=== PATIENT | female | born 2000 | race Caucasian/White ===

== ENCOUNTER 2020-03-30 08:45 | Emergency (ER) | payer OTHER ==
[2020-03-30] MEDS ORDERED: FAMOTIDINE 20 MG TAB PO ONE (09:15)
[2020-03-30] MEDS ORDERED: predniSONE 20 MG TAB ONE (09:16)
--- NOTE | 2020-03-30 09:41 | RAD REPORT ---
EXAM DESCRIPTION: Rinku Single View03/30/2020 9:32 am CLINICAL HISTORY: sob COMPARISON: none FINDINGS: The lungs appear clear of acute infiltrate. The heart is normal size IMPRESSION: No acute abnormalities displayed
--- NOTE | 2020-03-30 09:47 | ER ---
Nurse's Notes [facility] Name: Stephanie Saldaña Age: 20 yrs Sex: Female : 2000 Arrival Date: 03/30/2020 Time: 08:51 Bed 19 Private MD: Diagnosis: Allergic contact dermatitis Presentation: 03/30 09:00 Chief complaint: Patient states: CIRCUM-ORAL RASH AND SOB SINCE LAST PM. Coronavirus bp screen: Prior COVID test DX POSITIVE 03/18. Ebola Screen: No symptoms or risks identified at this time. Initial Sepsis Screen: Does the patient meet any 2 criteria? No. Patient's initial sepsis screen is negative. Does the patient have a suspected source of infection? No. Patient's initial sepsis screen is negative. Risk Assessment: Do you want to hurt yourself or someone else? Patient reports no desire to harm self or others. Onset of symptoms was March 29, 2020 at 21:00. Care prior to arrival: BENADRYL 25MG PO \T\ 0800. 09:00 Method Of Arrival: Ambulatory bp 09:00 Acuity: LARISA 3 bp Triage Assessment: 09:03 General: Appears in no apparent distress. uncomfortable, slender, Behavior is bp cooperative, appropriate for age, anxious. Pain: Denies pain. EENT: CIRCUM-ORAL RASH. Neuro: No deficits noted. Cardiovascular: No deficits noted. Respiratory: Reports shortness of breath Airway is patent Respiratory effort is even, unlabored, Respiratory pattern is regular, symmetrical, Onset: The symptoms/episode began/occurred yesterday, the patient has mild shortness of breath. GI: No signs and/or symptoms were reported involving the gastrointestinal system. : No signs and/or symptoms were reported regarding the genitourinary system. Derm: No deficits noted. Musculoskeletal: No deficits noted. 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 - Social history:: Smoking status: Patient denies any tobacco usage or history of. Screenin:04 Abuse screen: Denies threats or abuse. Denies injuries from another. Nutritional bp screening: No deficits noted. Tuberculosis screening: No symptoms or risk factors identified. Fall Risk None identified. Assessment: 09:04 General: SEE TRIAGE NOTE. Cardiovascular: Rhythm is sinus rhythm. Respiratory: Airway bp is patent Breath sounds are clear bilaterally. 09:08 Reassessment: MED REQUESTED FROM PHARMACY, DELIVERY PENDING. bp 09:19 Reassessment: XRAY AT B/S. MEDS DELIVERED AND ADMINISTERED. bp 09:51 Reassessment: PT D/C HOME AMBULATORY, DX WITH CONTACT DERMATITIS. bp Vital Signs: 09:00 BP 117 / 80; Pulse 74; Resp 17; Temp 98.2; Pulse Ox 99% ; Weight 68.04 kg; Height 5 ft. bp 11 in. (180.34 cm); 09:18 BP 112 / 74; Pulse 67; Resp 16; Pulse Ox 99% ; bp 09:00 Body Mass Index 20.92 (68.04 kg, 180.34 cm) bp ED Course: 08:51 Patient arrived in ED. mr 08:51 Carmen Zuluaga FNP-C is [facility]. kb 08:51 Cipriano Up MD is Attending Physician. kb 08:52 Brain Mitchell, LUZ is Primary Nurse. bp 09:02 Triage completed. bp 09:03 Arm band placed on. bp 09:04 Patient has correct armband on for positive identification. Bed in low position. Call bp light in reach. Side rails up X2. 09:33 Chest Single View XRAY In Process Unspecified. EDMS 09:51 No provider procedures requiring assistance completed. Patient did not have IV access bp during this emergency room visit. Administered Medications: 09:15 Drug: Pepcid 20 mg Route: PO; bp 09:45 Follow up: Response: No adverse reaction bp 09:15 Drug: predniSONE 20 mg Route: PO; bp 09:45 Follow up: Response: No adverse reaction bp Outcome: 09:47 Discharge ordered by . kb 09:51 Discharged to home ambulatory. bp 09:51 Condition: stable 09:51 Discharge instructions given to patient, Instructed on discharge instructions, follow up and referral plans. medication usage, Demonstrated understanding of instructions, follow-up care, medications, Prescriptions given X 2. 09:53 Patient left the ED. bp Signatures: Dispatcher [employer] EDMS Carmen Zuluaga FNP-C FNP-Ckb Rivera, Mary mr Stephen, Brain, RN RN bp
--- NOTE | 2020-03-30 09:48 | EDPHYS ---
Physician Documentation [facility] Name: Stephanie Saldaña Age: 20 yrs Sex: Female : 2000 Arrival Date: 03/30/2020 Time: 08:51 Bed 19 Private MD: ED Physician Cipriano Up HPI: 03/30 09:22 This 20 yrs old Female presents to ER via Ambulatory with complaints of COVID kb Positive, Shortness Of Breath. 09:22 The patient's rash thought to be caused by Dermatitis. The rash is located on the kb mouth. The rash can be described as macular, papular. Onset: The symptoms/episode began/occurred last night. Associated signs and symptoms: Pertinent positives: itching, Pertinent negatives: Pain. Severity of symptoms: At their worst the symptoms were moderate in the emergency department the symptoms are unchanged. Treatment given at home: Benadryl. The patient has not experienced similar symptoms in the past. The patient has not recently seen a physician. Pt reports she thinks she ate something that she is allergic to. Developed a rash around her mouth last night that itches and had shortness of breath. States she was positive for COVID 14 days ago and has been asymptomatic for 3 days. . 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 - Social history:: Smoking status: Patient denies any tobacco usage or history of. ROS: 09:21 Constitutional: Negative for fever, chills, and weight loss, ENT: Negative for injury, kb pain, and discharge, Neck: Negative for injury, pain, and swelling, Cardiovascular: Negative for chest pain, palpitations, and edema, Abdomen/GI: Negative for abdominal pain, nausea, vomiting, diarrhea, and constipation, Back: Negative for injury and pain, MS/Extremity: Negative for injury and deformity, Neuro: Negative for headache, weakness, numbness, tingling, and seizure. 09:21 Respiratory: Positive for shortness of breath, Negative for cough, dyspnea on exertion, hemoptysis, orthopnea, pleurisy, sputum production, wheezing. 09:21 Skin: Positive for rash, of the mouth. Exam: 09:21 Constitutional: This is a well developed, well nourished patient who is awake, alert, kb and in no acute distress. Head/Face: Normocephalic, atraumatic. Neck: Trachea midline, no thyromegaly or masses palpated, and no cervical lymphadenopathy. Supple, full range of motion without nuchal rigidity, or vertebral point tenderness. No Meningismus. Chest/axilla: Normal chest wall appearance and motion. Nontender with no deformity. No lesions are appreciated. Cardiovascular: Regular rate and rhythm with a normal S1 and S2. No gallops, murmurs, or rubs. Normal PMI, no JVD. No pulse deficits. Respiratory: Lungs have equal breath sounds bilaterally, clear to auscultation and percussion. No rales, rhonchi or wheezes noted. No increased work of breathing, no retractions or nasal flaring. Abdomen/GI: Soft, non-tender, with normal bowel sounds. No distension or tympany. No guarding or rebound. No evidence of tenderness throughout. MS/ Extremity: Pulses equal, no cyanosis. Neurovascular intact. Full, normal range of motion. Neuro: Awake and alert, GCS 15, oriented to person, place, time, and situation. Cranial nerves II-XII grossly intact. Motor strength 5/5 in all extremities. Sensory grossly intact. Cerebellar exam normal. Normal gait. 09:21 Skin: rash a mild rash is noted, consistent with contact dermatitis, on the mouth. Vital Signs: 09:00 BP 117 / 80; Pulse 74; Resp 17; Temp 98.2; Pulse Ox 99% ; Weight 68.04 kg; Height 5 ft. bp 11 in. (180.34 cm); 09:18 BP 112 / 74; Pulse 67; Resp 16; Pulse Ox 99% ; bp 09:00 Body Mass Index 20.92 (68.04 kg, 180.34 cm) bp MDM: 08:52 Patient medically screened. kb 09:21 Data reviewed: vital signs, nurses notes. Data interpreted: Pulse oximetry: on room air kb is 99 %. Interpretation: normal. Counseling: I had a detailed discussion with the patient and/or guardian regarding: the historical points, exam findings, and any diagnostic results supporting the discharge/admit diagnosis, radiology results, the need for outpatient follow up, a family practitioner, to return to the emergency department if symptoms worsen or persist or if there are any questions or concerns that arise at home. 03/30 08:52 Order name: Chest Single View XRAY; Complete Time: 09:47 kb Administered Medications: 09:15 Drug: Pepcid 20 mg Route: PO; bp 09:45 Follow up: Response: No adverse reaction bp 09:15 Drug: predniSONE 20 mg Route: PO; bp 09:45 Follow up: Response: No adverse reaction bp Disposition: 12:35 Co-signature as Attending Physician, Cipriano Up MD I agree with the assessment and kdr plan of care. Disposition: 03/30/20 09:47 Discharged to Home. Impression: Allergic contact dermatitis. - Condition is Stable. - Discharge Instructions: Contact Dermatitis, [id number]. - Prescriptions for Pepcid 20 mg Oral Tablet - take 1 tablet by ORAL route every 12 hours for 5 days; 10 tablet. Prednisone 20 mg Oral Tablet - take 1 tablet by ORAL route once daily for 5 days; 5 tablet. - Medication Reconciliation Form, Thank You Letter, Antibiotic Education, Prescription Opioid Use form. - Follow up: Emergency Department; When: As needed; Reason: Worsening of condition. Follow up: Private Physician; When: 2 - 3 days; Reason: Recheck today's complaints, Continuance of care, Re-evaluation by your physician. Signatures: Dispatcher [employer] EDDE Carmen Zuluaga, INTERNAL COMBUSTION ENGINEER-C INTERNAL COMBUSTION ENGINEER-Cipriano Decker MD MD kdr Brain Mitchell, RN RN bp Corrections: (The following items were deleted from the chart) 09:53 09:47 03/30/2020 09:47 Discharged to Home. Impression: Allergic contact dermatitis. bp Condition is Stable. Discharge Instructions: Contact Dermatitis, [id number]. Prescriptions for Pepcid 20 mg Oral Tablet - take 1 tablet by ORAL route every 12 hours for 5 days; 10 tablet, Prednisone 20 mg Oral Tablet - take 1 tablet by ORAL route once daily for 5 days; 5 tablet. and Forms are Medication Reconciliation Form, Thank You Letter, Antibiotic Education, Prescription Opioid Use. Follow up: Emergency Department; When: As needed; Reason: Worsening of condition. Follow up: Private Physician; When: 2 - 3 days; Reason: Recheck today's complaints, Continuance of care, Re-evaluation by your physician. kb
[2020-03-30 09:59] VITALS: TEMP 98.2; O2SAT 99
[2020-03-30 10:01] VITALS: BP 112/74
--- OUTSIDE RECORDS SUMMARY | 2020-03-30 12:08 | XMS REPORT | Summary of Care ---
:2000 Author Organization [facility] Address [address] [place] [id number] Care Team Providers Name Role Phone Toya Jimenez MD Primary Care Provider Reason for Visit Reason Comments Sore Throat X 3 days Cough X 2 days Nausea X 1 week Fatigue X 1 week Shortness of Breath X 5 days Encounter Details Date Type Department Care Team Description 12/31/2019 Urgent Care [facility] Family AdiStephie alvarado, PA [address] [place] [id number] Otitis media, acute allergic serous, lef t (Primary Dx); [place] [id number], Acute Care Clinic Cough; [address] [place], [place] [address], [place] [address] Allergies Active Allergy Reactions Severity Noted Date Comments Meperidine Hcl Hallucinations 10/24/2018 Promethazine Hcl Hallucinations 10/24/2018 documented as of this encounter (statuses as of 12/31/2019) Medications Medication Sig Dispensed Refills Start Date End Date Status ondansetron 4 mg Take 1 tablet 12 tablet 0 12/26/2019 12/31/19 2 Discontinued tabletIndications by mouth every 0 (Therapy : Viral 8 (eight) completed) gastroenteritis, hours as Nausea vomiting needed for and diarrhea Nausea and Vomiting (N/V). famotidine 40 mg Take 1 tablet 30 tablet 0 12/26/2019 12/31/19 2 Discontinued tabletIndications by mouth 0 (T herapy : Viral daily. completed) gastroenteritis, Nausea vomiting and diarrhea documented as of this encounter (statuses as of 12/31/2019) Active Problems Problem Noted Date Allergic rhinitis documented as of this encounter (statuses as of 12/31/2019) Social History Tobacco Use Types Packs/Day Years Used Date Never Smoker Smokeless Tobacco: Never Used Alcohol Use Drinks/Week oz/Week Comments No Sex Assigned at Date Recorded Not on file Job Start Date Occupation Industry Not on file Not on file Not on file Travel History Travel Start Travel End No recent travel history available. documented as of this encounter Last Filed Vital Signs Vital Sign Reading Time Taken Comments Blood Pressure 105/76 12/31/2019 10:12 AM CDT Pulse 76 12/31/2019 10:12 AM CDT Temperature 36.8 C (98.3 F) 12/31/2019 10:12 AM CDT Respiratory Rate 16 12/31/2019 10:12 AM CDT Oxygen Saturation 99% 12/31/2019 10:12 AM CDT Inhaled Oxygen Concentration - - Weight 69.9 kg (154 lb) 12/31/2019 10:12 AM CDT last we ight Height 180.3 cm (5' 11") 12/31/2019 10:12 AM CDT Body Mass Index 21.48 12/31/2019 10:12 AM CDT documented in this encounter Progress Notes Elda Knowles, JUSTYN - 12/31/2019 10:00 AM CDT Informant(s): patient No abuse reported (sexual, emotional or physical) Chief Complaint: fever HPI 19 year old female here today for fever present 5 days. Patient denies chest pain, shortness of breath and vomiting: Symptoms are gradually worsening. Associated signs and symptoms include non-productive cough, chills, diarrhea without blood, malaise/fatigue, myalgia, nausea and sore throat. +decreased appetite. +vomiting once a few days ago. No vomiting since then. No nasal congestion. Reports SOB a few days ago but now a little better. Has found minimal relief with Tylenol for body aches and headache. Activity: Appropriate for age Fever: 99.5 TMAX Drinking: normal Urinating: >4 times in 24 hrs Ill contacts: Mom and sibling with abdominal pain; She continues to work for the [employer]. Contributing factors: still working for the [employer] Pain scale: Body aches 5-6/10 COVID-19 SCREEN: Recent history of travel: No Contact with a proven COVID-19 case: No CHRONIC CONDITIONS: none CURRENT MEDICATIONS No current outpatient medications on file. SOCIAL HISTORY Smoke exposure: no CURRENT PROBLEM LIST Patient Active Problem List Diagnosis Allergic rhinitis ASSOCIATED SYMPTOMS/REVIEW OF SYSTEMS Constitutional: (+) fever, (+) fatigue, (-) fussy +chills Eyes: (-) redness, (-) drainage, (-) eyelid swelling Ears: (-) ear pain, (-) ear drainage Nose/Sinuses: (-) nasal congestion, (-) nasal flaring, (-)rhinorrhea Mouth/Throat: (+) throat pain, (-) lesions to mouth Cardiovascular: (-) chest pain, (-) palpitations Respiratory: (+) cough, (-) retractions, (+) SOB, (-) wheezing, (-) sneezing Gastrointestinal: (+) decreased appetite, (+) diarrhea, (+) vomiting, (-) abdominal pain, (+) nausea Genitourinary: (-) hematuria, (-) dysuria Musculoskeletal: (+) myalgia, (-) joint pain Integumentary: (-) rash Neuro: (-) headache Endocrine: negative Hem/Lymph: negative Allergy/Immunology: Negative ALLERGIES Demerol [meperidine hcl] and Phenergan [promethazine hcl] HISTORY No history on file. Past Medical History: Diagnosis Date Allergic rhinitis Past Surgical History: Procedure Laterality Date HAND/FINGER SURGERY UNLISTED left ring finger plastic surgery Family History Problem Relation Age of Onset Allergies Mother Allergies Father Hypertension Father No Significant Medical Problems Sister No Significant Medical Problems Brother Lung Cancer Paternal Grandmother Social History Social History Narrative College student, [employer]. 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 Single. Lives with her mother (parents ). PHYSICAL EXAMINATION BP 105/76 | Pulse 76 | Temp 36.8 C (98.3 F) (Oral) | Resp 16 | Ht 5' 11" (1.803 m) | Wt 154lb (69.9 kg) | SpO2 99% | BMI 21.48 kg/m >99 %ile (Z= 2.64) based on CDC (Girls, 2-20 Years) [id number] data based on Stature recorded on 12/31/2019. 83 %ile (Z= 0.96) based on CDC (Girls, 2-20 Years) [id number] data using vitals from 12/31/2019. Body mass index is 21.48 kg/m. 47 %ile (Z= -0.07) based on CDC (Girls, 2-20 Years) BMI-for-age based on BMI available as of 12/31/2019. Blood pressure percentiles are not available for patients who are 18 years or older. Results for STEPHANIE HOLLAND ( ) as of 12/31/2019 11:02 Ref. Range 12/31/2019 00:00 POCT GP A STREP Latest Ref Range: Negative - Negative Negative POCT INFLUENZA A Latest Ref Range: Negative - Negative Negative POCT INFLUENZA B Latest Ref Range: Negative - Negative Negative General: Alert, active, in no acute distress. No grunting. Head: Normocephalic. Eyes: Conjunctiva clear. Ears: Left TM with air/fluid level. Right TM normal. External auditory canals normal. Left TM with fluid Nose: Clear, no discharge. No nasal flaring. Turbinates normal Oral Pharynx: Moist mucous membranes. Soft palate without erythema and petechiae. No exudates. Posterior pharynx with cobblestone appearance. Neck: Supple without lymphadenopathy. Lungs: Clear to auscultation, no wheezing, rhonchi, crackles or chest retractions. Heart: Regular rate and rhythm. No murmur. Abdomen: Normal bowel sounds x 4. Abdomen is soft, non-distended and nontender. No HSM or masses. Neuro: Normal without focal findings. Musculoskeletal: Moves all extremities equally. Normal muscle tone. Skin: Warm, no rashes or lesions, no ecchymosis. ASSESSMENT Encounter Diagnoses Name Primary? Otitis media, acute allergic serous, left Yes Cough URI, acute PLAN COVID Screening ordered Push fluids Cool mist humidifier/or steam shower Elevate HOB 30 degrees ER warnings for S&S of dehydration or respiratory distress (grunting, nasal flaring or chest retractions) Tylenol prn for fever/pain - OTC as directed Discussed pathology and expected course of illness RTC if worsening sx or no improvement in 1-2 weeks No NSAIDS documented in this encounter Plan of Treatment Name Type Priority Associated Diagnoses Order S chedule CORONAVIRUS COVID-19 LAB Routine Cough Expecte d: 12/31/2019, TESTING Expires: 2020 Health Maintenance Due Date Last Done Comments VARICELLA VACCINES (1 of 2 - 2001 2-dose childhood series) MENINGOCOCCAL B VACCINES (1 of 2010 2 - Risk Bexsero 2-dose series) DTaP,Tdap,and Td Vaccines (1 - 2011 Tdap) HPV VACCINES (1 - Female 2011 2-dose series) CHLAMYDIA SCREENING 2016 INFLUENZA VACCINE (#1) 2019 WELL CARE VISIT: 12-21 YEARS 11/25/2019 11/25/2018, (yearly) 10/24/2018 MENINGOCOCCAL VACCINE Aged Out No longer eligible based on patient's age to complete this to pic PNEUMOCOCCAL 0-64 YEARS Aged Out No longe r eligible based COMBINED SERIES on patient's age to complete this to pic documented as of this encounter Procedures Procedure Name Priority Date/Time Associated Diagnosis Comme nts POCT FLU A AND B Routine 12/31/2019 Cough Results for this (MOLECULAR) procedure are i n the results section . POCT GRP A STREP Routine 12/31/2019 Cough Results for this (MOLECULAR) procedure are i n the results section . documented in this encounter Results POCT GRP A STREP (MOLECULAR) (12/31/2019) Pathologist Sig nature POCT GP A STREP Negative Negative - Negative Specimen Swab - THROAT POCT FLU A AND B (MOLECULAR) (12/31/2019) Pathologist Sig nature POCT INFLUENZA A Negative Negative - Negative POCT INFLUENZA B Negative Negative - Negative Specimen Swab documented in this encounter Visit Diagnoses Diagnosis Otitis media, acute allergic serous, lef t - Primary Cough URI, acute Acute upper respiratory infections of un specified site documented in this encounter [id number] 1 documented as of this encounter
--- OUTSIDE RECORDS SUMMARY | 2020-03-30 12:08 | XMS REPORT | Continuity of Care Document ---
:2000 Author Organization [facility] t Address [address] [place] [address] Care Team Providers Name Role Phone Jonn Jimenez MD Attending Clinician Pob1, Care Clinic Attending Clinician Unavailable Isaias Beyer RN Attending Clinician Unavailable Lab, Fam Pob I Attending Clinician Unavailable Doctor Unassigned, Name Attending Clinician Unavailable Problems This patient has no known problems. Allergies, Adverse Reactions, Alerts This patient has no known allergies or adverse reactions. Medications This patient has no known medications. Procedures This patient has no known procedures. Encounters Start End Encounter Admission Attending Care Care Encounter Source Date/Time Date/Time Type Type Clinicians Facility Department ID 2020-03-30 2020-03-30 Telephone Barbara WAERROL [id number] 00:00:00 00:00:00 [facility] [id number] [place] [id number] Jeanna [phone] nal [facility] Office Building One 2020-03-23 2020-03-23 Letter Pob1, Acute [facility] [id number] 00:00:00 00:00:00 (Out) [facility] [id number] [place] [id number] Jeanna [id number] nal [facility] Office [facility] 2020-03-20 2020-03-20 Telephone Karthik BOATENG [id number] 00:00:00 00:00:00 [facility] [id number] [facility] [id number] 2020-03-18 2020-03-18 Urgent Pob1, Acute [facility] [id number] 15:23:38 15:53:54 Care Care [facility] [id number] [place] [id number] Professio [phone] nal [facility] 2020-03-15 2020-03-15 Telephone Barbara [facility] [id number] 00:00:00 00:00:00 [facility] [id number] [place] [id number] Professio [phone] [place] [address] [address] 2020-03-14 2020-03-14 Marketing Sales Consultant Lab, [facility] [id number] 14:49:47 15:05:11 Visit Fam Pob I Health [id number] [place] [id number] Professio [phone] [place] [address] [address] 2020-03-14 2020-03-14 Orders Doctor TASNEEM [id number] 00:00:00 00:00:00 Only Unassigned, JENNY [id number] [facility] [id number] Results This patient has no known results.
--- OUTSIDE RECORDS SUMMARY | 2020-03-30 12:09 | XMS REPORT | Summary of Care ---
:2000 Author Organization [facility] Address [address] [place] [address] Care Team Providers Name Role Phone Toya Jimenez MD Primary Care Provider Reason for Visit Reason Comments Results Encounter Details Date Type Department Care Team Description 01/01/[address] [facility] Family Medicine - Elda Pena FNP Results [address] [address] [place] [address] [phone] Allergies Active Allergy Reactions Severity Noted Date Comments Meperidine Hcl Hallucinations 10/24/2018 Promethazine Hcl Hallucinations 10/24/2018 documented as of this encounter (statuses as of 01/01/2020) Medications No known medicationsdocumented as of this encounter (statuses as of 01/01/2020) Active Problems Problem Noted Date Allergic rhinitis documented as of this encounter (statuses as of 01/01/2020) Social History Tobacco Use Types Packs/Day Years Used Date Never Smoker Smokeless Tobacco: Never Used Alcohol Use Drinks/Week oz/Week Comments No Sex Assigned at Date Recorded Not on file Job Start Date Occupation Industry Not on file Not on file Not on file Travel History Travel Start Travel End No recent travel history available. documented as of this encounter Last Filed Vital Signs Not on filedocumented in this encounter Plan of Treatment Health Maintenance Due Date Last Done Comments [...] to pic documented as of this encounter Results Not on filedocumented in this encounter Insurance Payer Benefit Plan / Group Subscriber ID Effective Dates Phone Address Type [facility] [id number] 2018-Present documented as of this encounter
--- OUTSIDE RECORDS SUMMARY | 2020-03-30 12:09 | XMS REPORT | Summary of Care ---
:2000 Author Organization [facility] - [facility] Address [address] [place] [address] Care Team Providers Name Role Phone Toya Jimenez MD Primary Care Provider Reason for Visit Reason Comments Exposure COVID- asymptomatic Encounter Details Date Type Department Care Team Description 03/14/2020 Bull Riveter Visit [facility] Family Franklin Lois , JUSTYN [address] [facility] [address] [place] [address] Suspected Covid-19 Medicine - [place], Adc Fam Pob I Virus Infection [address] [place] [address] (Primary D x) [place] [address] Allergies Active Allergy Reactions Severity Noted Date Comments Meperidine Hcl Hallucinations 10/24/2018 Promethazine Hcl Hallucinations 10/24/2018 documented as of this encounter (statuses as of 03/14/2020) Medications No known medicationsdocumented as of this encounter (statuses as of 03/14/2020) Active Problems Problem Noted Date Allergic rhinitis documented as of this encounter (statuses as of 03/14/2020) Social History Tobacco Use Types Packs/Day Years Used Date Never Smoker Smokeless Tobacco: Never Used Alcohol Use Drinks/Week oz/Week Comments No Sex Assigned at Date Recorded Not on file Job Start Date Occupation Industry Not on file Not on file Not on file Travel History Travel Start Travel End No recent travel history available. COVID-19 Exposure Response Date Recorded In the last month, have you been in contact with Yes 03/14/2020 3:01 PM CDT someone who was confirmed or suspected to have Coronavirus / COVID-19? documented as of this encounter Last Filed Vital Signs Not on filedocumented in this encounter Plan of Treatment Name Type Priority Associated Diagnoses Order S chedule COVID-19 (PCR MOLECULAR LAB Routine Suspected Covid-1 9 Virus Expected: 03/14/2020, TESTING) Infection Expires: 2020 Health Maintenance Due Date Last Done Comments VARICELLA VACCINES (1 of 2 - 2001 2-dose childhood series) MENINGOCOCCAL B VACCINES (1 of 2010 2 - Risk Bexsero 2-dose series) DTaP,Tdap,and Td Vaccines (1 - 2011 Tdap) HPV VACCINES (1 - Female 2011 2-dose series) CHLAMYDIA SCREENING 2016 WELL CARE VISIT: 12-21 YEARS 11/25/2019 11/25/2018, (yearly) 10/24/2018 INFLUENZA VACCINE (Season 06/01/2020 Ended) Depression Screening 10/23/2020 10/23/2019 MENINGOCOCCAL VACCINE Aged Out No longer eligible based on patient's age to complete this to pic PNEUMOCOCCAL 0-64 YEARS Aged Out No longe r eligible based COMBINED SERIES on patient's age to complete this to pic documented as of this encounter Results Not on filedocumented in this encounter Visit Diagnoses Diagnosis Suspected Covid-19 Virus Infection - Keila stapleton documented in this encounter 8953 1 documented as of this encounter
--- OUTSIDE RECORDS SUMMARY | 2020-03-30 12:09 | XMS REPORT | Summary of Care ---
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 Family Franklin Lois , JUSTYN [address] [facility] [address] [place] [address] Suspected Covid-19 Medicine - [facility], Adc Fam Pob I Virus Infection [address] [place] [address] (Primary D x) [place] [address] Allergies Active Allergy Reactions Severity [...] - Keila stapleton documented in this encounter 0057 1 documented as of this encounter
--- OUTSIDE RECORDS SUMMARY | 2020-03-30 12:09 | XMS REPORT | Summary of Care ---
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
--- OUTSIDE RECORDS SUMMARY | 2020-03-30 12:09 | XMS REPORT | Summary of Care ---
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
--- OUTSIDE RECORDS SUMMARY | 2020-03-30 12:10 | XMS REPORT | Summary of Care ---
:2000 Author Organization [facility] Address [address] [place], [place] [id number] Care Team Providers Name Role Phone Toya Jimenez MD Primary Care Provider Reason for Visit Reason Comments Results Encounter Details Date Type Department Care Team Description 03/20/2020 Telephone [facility] Pascale Beyer RN Results [address] [address] [place] [address] Allergies Active Allergy Reactions Severity Noted Date Comments Meperidine Hcl Hallucinations 10/24/2018 Promethazine Hcl Hallucinations 10/24/2018 documented as of this encounter (statuses as of 03/20/2020) Medications No known medicationsdocumented as of this encounter (statuses as of 03/20/2020) Active Problems Problem Noted Date Allergic rhinitis documented as of this encounter (statuses as of 03/20/2020) Social History Tobacco Use Types Packs/Day Years [...] have you been in contact with Yes 03/18/2020 3:35 PM CDT someone who was confirmed or [...] Results Not on filedocumented in this encounter Additional Health Concerns Infection Onset Date Last Indicated Resolved Time COVID-19 Confirmed 03/20/2020 03/20/2020 documented as of this encounter Insurance Payer Benefit Plan / Group Subscriber ID Effective Dates Phone Address Type [facility] [id number] 2018-Present documented as of this encounter
--- OUTSIDE RECORDS SUMMARY | 2020-03-30 12:10 | XMS REPORT | Summary of Care ---
:2000 Author Organization [facility] - [facility] Address [address] [place] [address] Care Team Providers Name Role Phone Toya Jimenez MD Primary Care Provider Reason for Visit Reason Comments Fever Chills Sore Throat Headache All symptoms started ay. Got tested Sunday due to exposure, felt fine until Sunday. Body Aches Cough Diarrhea Fatigue Exposure Exposed at work. 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 [employer]SE GRADING [address] [address] Fever, unspecified fever cause (Primary Dx); [place] [address], Acute Care Clinic Sore throat [address] [place] [phone] Allergies Active Allergy Reactions Severity Noted Date Comments Meperidine Hcl Hallucinations 10/24/2018 Promethazine Hcl Hallucinations 10/24/2018 documented as of this encounter (statuses as of 03/19/2020) Medications No known medicationsdocumented as of this encounter (statuses as of 03/19/2020) Active Problems Problem Noted Date Allergic rhinitis documented as of this encounter (statuses as of 03/19/2020) Social History Tobacco Use Types Packs/Day Years [...] Sign Reading Time Taken Comments Blood Pressure 120/80 03/18/2020 3:37 PM CDT Pulse 87 03/18/2020 3:37 PM CDT Temperature 36.3 C (97.3 F) 03/18/2020 3:37 PM CDT Respiratory Rate 18 03/18/2020 3:37 PM CDT Oxygen Saturation 100% 03/18/2020 3:37 PM CDT Inhaled Oxygen Concentration - - Weight 68 kg (150 lb) 03/18/2020 3:37 PM CDT Height 180.3 cm (5' 11") 03/18/2020 3:37 PM CDT Body Mass Index 20.92 03/18/2020 3:37 PM CDT documented in this encounter Progress Notes Fay Frazier MA - 03/18/2020 3:20 PM CDT Stephanie Holland is a 20 year old female Chief Complaint Patient presents with Fever Chills Sore Throat Headache All symptoms started Sunday. Got tested Sunday due to exposure, felt fine until Sunday. Body Aches Cough Diarrhea Fatigue Exposure Exposed at work. Vitals: 03/18/20 1537 BP: 120/80 Pulse: 87 Resp: 18 Temp: 36.3 C (97.3 F) SpO2: 100% Weight: 150 lb (68 kg) Height: 5' 11" (1.803 m) [id number] - [place], [place] - [address] [facility] [employer] [facility] ([place], [place]) All Vitals taken, allergies and all medications reviewed, fall risk assessed. Pain level 0. Fay Frazier MA Patient educated on plan of care for visit, swabbing technique, risks and benefits of test and length of time to receive results. Verbal consent obtained to perform test. CDC Fact Sheet for PatientsnCoV Diagnostic Panel dated 12/14/2019 provided. covid test run Strep test run Elda Roque FNP - 03/18/2020 3:20 PM CDT Informant(s): patient No abuse reported (sexual, emotional or physical) Chief Complaint: Sore throat HPI 20 year old female here at the COVID clinic today for sore throat present since yesterday. . Associated signs and symptoms include: See COVID 19 screen below Activity: Appropriate for age Eating: Decreased appetite Drinking: good Urinating: >4 times in 24 hrs Vomiting: no Contributing factors: Was around a + COVID at work last week Pain scale: 03/10 COVID-19 SCREEN: Contact with a proven COVID-19 case: + Symptoms of COVID-19, which include -Fever: + since yesterday (low grade) TMAX 99.5F -Nonproductive persistent cough: +; mild -Extreme fatigue: + Muscle pain: + Joint pain : +; since yesterday New onset backache: +; Since yesterday -Difficulty Breathing/SOB: no -Loss of Taste and/or Smell: no -Sore Throat: +; -Diarrhea: +; Since yesterday; None today. 3-4 yesterday. Abdominal Pain : + yesterday -[place] eye/Conjunctivitis: no Tested for COVID before: Yes Results for STEPHANIE HOLLAND ( ) as of 03/18/2020 15:32 Ref. Range 12/31/2019 10:09 03/14/2020 15:05 SARS-CoV-2 PCR Latest Ref Range: Not Detected Not Detected Not Detected Healthcare Worker: No CHRONIC CONDITIONS: none CURRENT MEDICATIONS none No current outpatient medications on file. SOCIAL HISTORY Smoke exposure: no CURRENT PROBLEM LIST Patient Active Problem List Diagnosis Allergic rhinitis ASSOCIATED SYMPTOMS/REVIEW OF SYSTEMS Constitutional: (+) fever, (+) fatigue, (-) fussy Eyes: (-) redness, (-) drainage, (-) eyelid swelling Ears: (-) ear pain, (-) ear drainage Nose/Sinuses: (-) nasal congestion, (-) nasal flaring, (-)rhinorrhea, (-) loss of smell Mouth/Throat: (+) throat pain, (-) lesions to mouth (-) loss of taste/smell Cardiovascular: (-) chest pain, (-) palpitations Respiratory: (+) cough, (-) retractions, (-) SOB/difficulty breathing, (-) wheezing, (-) sneezing Gastrointestinal: (+) decreased appetite, (+) diarrhea, (-) vomiting, (-) abdominal pain, (-) nausea Genitourinary: (-) hematuria, (-) dysuria Musculoskeletal: (+) myalgia, (+) joint pain, (-) muscle cramps +backache Integumentary: (-) rash Neuro: (-) headache Endocrine: [...] Social History Social History Narrative 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 Single. Lives with her mother (parents ). PHYSICAL EXAMINATION BP 120/80 | Pulse 87 | Temp 36.3 C (97.3 F) | Resp 18 | Ht 5' 11" (1.803 m) | Wt 150 lb (68kg) | SpO2 100% | BMI 20.92 kg/m Normalized rgfmvud-eom-zug data not available for patients older than 20 years. Normalized tsnbvr-upw-gal data not available for patients older than 20 years. Body mass index is 20.92 kg/m. Normalized BMI data available only for age 0 to 20 years. Blood pressure percentiles are not available for patients who are 18 years or older. Results for STEPHANIE HOLLAND ( ) as of 03/19/2020 10:13 Ref. Range 03/18/2020 15:43 POCT GP A STREP Latest Ref Range: Negative - Negative neg General: Alert, active, in no acute distress. No grunting. Head: Normocephalic. Eyes: Conjunctiva clear. Ears: TM's normal. External auditory canals normal. Nose: Clear, no discharge. No nasal flaring. Turbinates normal Oral Pharynx: Moist mucous membranes. Soft palate without erythema and petechiae. No exudates. Posterior pharynx without cobblestone appearance. Neck: Supple without lymphadenopathy. Lungs: [...] no ecchymosis. ASSESSMENT Encounter Diagnoses Name Primary? Fever, unspecified fever cause Yes Sore throat PLAN Ordered COVID 19 screening test Advised to self isolate until COVID 19 test results come back negative Advised not to take NSAIDS including Ibuprofen, Motrin and Advil. documented in this encounter Plan of Treatment Name Type Priority Associated Diagnoses Date/Ti me COVID-19 (PCR MOLECULAR LAB Routine Fever, unspecifie d fever 03/18/2020 3:30 PM CDT TESTING) cause Sore throat Health Maintenance Due Date Last Done Comments [...] Priority Date/Time Associated Diagnosis Comme nts POCT GRP A STREP STAT 03/18/2020 3:43 PM Fever, unspecifie d Results for this (MOLECULAR) CDT fever cause procedure are in Sore throat the results section. documented in this encounter Results POCT GRP A STREP (MOLECULAR) (03/18/2020 3:43 PM CDT) Pathologist Sig nature POCT GP A STREP neg Negative - Negative Specimen Swab - THROAT Narrative Performed At [facility] development and interpretation of all interna l controls documented in this encounter Visit Diagnoses Diagnosis Fever, unspecified fever cause - Primary Sore throat Acute pharyngitis documented in this encounter 9113 1 documented as of this encounter
--- OUTSIDE RECORDS SUMMARY | 2020-03-30 12:10 | XMS REPORT | Summary of Care ---
:2000 Author Organization [facility] Address [address] [place] [address] Care Team Providers Name Role Phone Toya Jimenez MD Primary Care Provider Reason for Visit Reason Comments Results Encounter Details Date Type Department Care Team Description 03/15/2020 Telephone [facility] Family Medicine Toya Palm MD Results - [address] [place] [address] [place] [address] [phone] Allergies Active Allergy Reactions Severity Noted Date Comments Meperidine Hcl Hallucinations 10/24/2018 Promethazine Hcl Hallucinations 10/24/2018 documented as of this encounter (statuses as of 03/16/2020) Medications No known medicationsdocumented as of this encounter (statuses as of 03/16/2020) Active Problems Problem Noted Date Allergic rhinitis documented as of this encounter (statuses as of 03/16/2020) Social History Tobacco Use Types Packs/Day Years [...] ID Effective Dates Phone Address Type [facility] [id number] 2018-Present Shereen documented as of this encounter
--- OUTSIDE RECORDS SUMMARY | 2020-03-30 12:10 | XMS REPORT | Summary of Care ---
:2000 Author Organization [facility] Address [address] [place] [address] Care Team Providers Name Role Phone Toya Jimenez MD Primary Care Provider Encounter Details Date Type Department Care Team Description 03/23/2020 Letter (Out) [facility] Family Medicine Pob1, Acute C [address] [place] [address] Allergies Active Allergy Reactions Severity Noted Date Comments Meperidine Hcl Hallucinations 10/24/2018 Promethazine Hcl Hallucinations 10/24/2018 documented as of this encounter (statuses as of 03/23/2020) Medications No known medicationsdocumented as of this encounter (statuses as of 03/23/2020) Active Problems Problem Noted Date Allergic rhinitis documented as of this encounter (statuses as of 03/23/2020) Social History Tobacco Use Types Packs/Day Years [...] Subscriber ID Effective Dates Phone Address Type [facility] [id number] 2018-Present documented as of this encounter
--- OUTSIDE RECORDS SUMMARY | 2020-03-30 12:11 | XMS REPORT | Summary of Care ---
:[address] [facility] - [facility] Address [address] [place] [address] Care Team Providers Name Role Phone Toya Jimenez MD Primary Care Provider Encounter Details Date Type Department Care Team Description 03/14/[address] [facility] Doctor Unassigned, No 301 [facility] Name [place] [id number] [address] [place] [phone] Allergies Active Allergy Reactions Severity Noted Date Comments Meperidine Hcl Hallucinations 10/24/2018 Promethazine Hcl Hallucinations 10/24/2018 documented as of this encounter (statuses as of 03/24/2020) Medications No known medicationsdocumented as of this encounter (statuses as of 03/24/2020) Active Problems Problem Noted Date Allergic rhinitis documented as of this encounter (statuses as of 03/24/2020) Social History Tobacco Use Types Packs/Day Years [...] Name Priority Date/Time Associated Diagnosis Comme nts AUTHORIZATION FOR RELEASE Routine 03/14/2020 12:01 AM OF PHI CDT documented in this encounter Results Not on filedocumented in this encounter Additional Health Concerns Infection Onset Date Last Indicated Resolved Time COVID-19 Confirmed 03/20/2020 03/20/2020 documented as of this encounter Insurance Payer Benefit Plan / Group Subscriber ID Effective Dates Phone Address Type [facility] [id number] 2018-Present documented as of this encounter
== END 2020-03-30 09:53 | disposition home or self-care (01) ==
LOC: ER 08:45
DX: L23.9 Allergic contact dermatitis, unspecified cause (principal); Z88.5 Allergy status to narcotic agent; Z88.8 Allergy status to other drugs, medicaments and biological substances
CPT/HCPCS: 71045; 99284; J7512

== ENCOUNTER 2021-03-25 18:20 | Emergency (ER) | payer OTHER, SELFPAY ==
--- OUTSIDE RECORDS SUMMARY | 2021-03-25 18:23 | XMS REPORT | Continuity of Care Document ---
:2000 Author Organization [facility] t Address [address] [place] [address] Care Team Providers Name Role Phone Provider, Urgent Care Attending Clinician Unavailable Aftab ALEJANDRA Attending Clinician Nurse, Urgent Care Attending Clinician Unavailable Aj ALEJANDRA Attending Clinician Lab, Fam Pob I Attending Clinician Unavailable Problems This patient has no known problems. Allergies, Adverse Reactions, Alerts This patient has no known allergies or adverse reactions. Medications This patient has no known medications. Procedures This patient has no known procedures. Encounters Start End Encounter Admission Attending Care Care Encounter Source Date/Time Date/Time Type Type Clinicians Facility Department ID 2021-01-15 2021-01-15 Urgent Allyssa NYERROL [id number] 15:01:26 15:41:41 Care [facility] [id number] [facility] [id number] [facility] [phone] nal [address] 2020-09-13 2020-09-13 Emergency Aftab [facility] [id number] 18:45:00 21:53:00 Melanie [place] [id number] [place] [id number] [place] [id number] [id number] 2020-09-13 2020-09-13 Nurse Nurse, Benjie [facility] [id number] 19:14:08 19:29:08 Visit Urgent Care Health [id number] [place] [id number] Professio [phone] nal 0[address] 2020-09-04 2020-09-04 Telephone Aj [facility] [id number] 00:00:00 00:00:00 Jeanna Health [id number] [place] [id number] Professio [phone] nal 044 [address] 2020-09-03 2020-09-03 Laboratory Lab, [facility] [id number] 15:01:34 15:21:34 Only Fam Pob I Health [id number] [place] [id number] Professio [phone] nal [facility] Office [address] 2020-08-25 2020-08-25 [facility] [id number] 18:26:53 18:46:53 Care [facility] [id number] [place] [id number] Professio [phone] nal [facility] Office [address] 2020-08-02 2020-08-02 Urgent [facility] [id number] 18:03:52 18:23:52 Care Ang [facility] [id number] Care [place] [id number] Professio [phone] nal [facility] Office [address] 2020-05-14 2020-05-14 Laboratory Lab, [facility] [id number] 11:00:21 11:12:35 Only Fam Pob I Health [id number] [place] [id number] Professio [phone] nal [facility] Office [address] One Results This patient has no known results.
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
[2021-03-26 00:52] VITALS: O2SAT 100
[2021-03-26 00:53] VITALS: BP 120/63; TEMP 97.6
--- NOTE | 2021-03-26 19:50 | RAD REPORT ---
EXAM DESCRIPTION: CT - Head Brain Wo Cont - 03/26/2021 6:37 am CLINICAL HISTORY: 21 years, Female, headache, trauma COMPARISON: None. FINDINGS: Multiple transaxial tomograms of the brain were obtained from the base of the skull to the vertex without contrast. 2-D multiplanar reformats and the coronal and sagittal plane were performed and reviewed. This exam was performed according to our departmental dose-optimization protocol, which includes auto mated exposure control, adjustment of the mA and/or kV according to patient size and/or use of iterat selvin reconstruction technique. Brain parenchyma as well as the mahmood and white matter differentiation demonstrate to be unremarkable. There is no midline shift and/or mass effect. There is no evidence for acute hemorrhage. Lateral v entricles and cisterns displace normal appearance. No intra or extra axial fluid collections were s een. The calvarium is intact with no evidence for fracture. The visualized portions of the paranasal sinuses and orbits demonstrate to be clear. IMPRESSION: No evidence for acute hemorrhage. Unremarkable CT scan of the head without contrast. Electronically signed by: Georgi Bower MD 03/25/2021 10:06 PM CDT Due to temporary technical issues with the PACS/Fluency reporting system, reports are being signed by the in house radiologists without review as a courtesy to insure prompt reporting. The interpreting radiologist is fully responsible for the content of the report.
== END 2021-03-25 23:34 | disposition home or self-care (01) ==
LOC: ER 18:20
DX: F07.81 Postconcussional syndrome (principal); W50.0XXA Accidental hit or strike by another person, initial encounter; Z88.5 Allergy status to narcotic agent; Z88.8 Allergy status to other drugs, medicaments and biological substances
CPT/HCPCS: 70450